=== PATIENT | male | born 1985 | race Caucasian/White ===

== ENCOUNTER 2018-08-03 11:41 | Day surgery (SDC) | payer OTHER ==
[2018-08-02 15:54] VITALS: BMI 27.1
[2018-08-03] MEDS ORDERED: LIDOCAINE HCL/PF 2% SDV 5ML VIAL ONE (14:31)
[2018-08-03] MEDS ORDERED: MIDAZOLAM HCL 2 MG/2 ML SINGLE DOSE VIAL ONE (14:32)
[2018-08-03] MEDS ORDERED: ROCURONIUM BROMIDE 50 MG/5 ML VIAL ONE ×2 (14:32→16:36)
[2018-08-03] MEDS ORDERED: fentaNYL CITRATE 250 MCG/5 ML VIAL ONE (14:32)
[2018-08-03] MEDS ORDERED: PROPOFOL 20 ML ONE ×3 (14:32→17:33)
[2018-08-03] MEDS ORDERED: LIDOCAINE HCL 2% (20ML MULTI-DOSE VIAL) NR ONE (15:00)
[2018-08-03] MEDS ORDERED: BUPIVACAINE HCL/PF 0.5% (5MG/ML) 10 ML VIAL ONE (15:04)
--- NOTE | 2018-08-03 15:12 | HP ---
History & Physical Update - History History: No Change - Physical Physical: No Change - Assessment Assessment: No Change - Plan Plan: No Change (full H&P in chart from 07/19/2018.)
[2018-08-03] MEDS ORDERED: ceFAZolin SODIUM 1 GM VIAL IVPB ONE (15:40)
[2018-08-03] MEDS ORDERED: ceFAZolin SODIUM 1 GM VIAL ONE (15:41)
[2018-08-03] MEDS ORDERED: DEXAMETHASONE SOD PHOSPHATE 4 MG/1 ML VIAL ONE (15:50)
[2018-08-03] MEDS ORDERED: ONDANSETRON 4 MG/2 ML VIAL ONE (15:50)
[2018-08-03] MEDS ORDERED: KETOROLAC TROMETHAMINE 30 MG/1 ML VIAL ONE (16:49)
[2018-08-03] MEDS ORDERED: NALOXONE HCL 0.4 MG/ML VIAL ONE (16:49)
[2018-08-03] MEDS ORDERED: GLYCOPYRROLATE 0.2 MG/1 ML VIAL ONE (17:13)
[2018-08-03] MEDS ORDERED: NEOSTIGMINE METHYLSULFATE 0.5 MG/ML - 10 ML MDV ONE (17:13)
[2018-08-03] MEDS ORDERED: SUCCINYLCHOLINE CHLORIDE 200 MG/10 ML VIAL ONE (17:42)
[2018-08-03] MEDS ORDERED: ACETAMINOPHEN 1000 MG/100 ML VIAL (NON FORMULARY) IVPB ONE (17:57)
[2018-08-03] MEDS ORDERED: ONDANSETRON 4 MG/2 ML VIAL IVPUSH PRN (17:57)
[2018-08-03] MEDS ORDERED: oxyCODONE HCL 5 MG TABLET PO PRN ×2 (17:57)
[2018-08-03] MEDS ORDERED: LACTATED RINGERS SOLUTION 1,000 ML IV SCH (18:00)
--- NOTE | 2018-08-03 18:21 | OP ---
Operative Note - Note: Operative Date: 08/03/18 Pre-Operative Diagnosis: cholelithesis Operation: laparoscopic cholecystecotmy with intra-operative cholangiogram Surgeon: Randal Stovall Telemetry Nurse: Bernice Lucia Anesthesia: General Specimens Removed: gallbladder Estimated Blood Loss (mls): 50 Fluid Volume Replaced (mls): 1,600 Operative Report Dictated: Yes
--- NOTE | 2018-08-03 18:22 | SURG ---
Surgery Instructor [employer] Note Instructor [employer]: Bernice Lucia PA-C Date of Service: 08/03/18 Diagnosis: cholelithesis Procedure: laparscopic cholecystectomy, itra-operative cholangiogram, repair of umbilical hernia I was present for the entirety of the operative procedure. For further detail, please refer to operative report. Visit type - Case Type Case Type: Scheduled - Emergency Emergency Visit: No - New patient This patient is new to me today: Yes Date on this admission: 08/03/18
[2018-08-03 20:44] VITALS: BP 139/66; PULSE 84; TEMP 98.6
--- NOTE | 2018-08-04 14:53 | OP ---
DATE OF OPERATION: 08/03/2018 SURGICAL ATTENDING: Scooby Sabillon MD ADJUNCT FACULTY MATHEMATICS DEPARTMENT: SANTIAGO Hong PREOPERATIVE DIAGNOSES: 1. Gallstones. 2. Umbilical hernia. POSTOPERATIVE DIAGNOSES: 1. Gallstones. 2. Umbilical hernia. ANESTHESIA: General endotracheal. PROCEDURE: 1. Laparoscopic cholecystectomy with intraoperative cholangiogram. 2. Umbilical hernia repair. DESCRIPTION OF PROCEDURE: The patient was taken into the operating room, placed in a supine position, endotracheally intubated, prepped and draped in the usual sterile fashion. A supraumbilical curvilinear incision was made and carried down to subcutaneous tissues. A piece of herniated fat was identified, dissected free from surrounding tissues, and reduced into the peritoneal cavity. The peritoneal lining was identified and palpated and isolated. A Daniela trocar was then placed through this umbilical hernia defect and the abdomen insufflated to 15 mmHg of CO2. Laparoscopy identified no injury and the gallbladder was identified. No other abnormality was seen. A midepigastric and 2 right lateral 5-mm ports were placed under direct vision. The gallbladder was then grasped and retracted superiorly, anteriorly, and laterally. The cystic artery was identified, doubly-clipped, and cut. The cystic duct was identified, dissected out, and a ductotomy was made. A cholangiogram catheter was placed into the duct, balloon inflated, and dye was injected. This showed excellent filling of the cystic duct, the common bile duct, and the common hepatic duct and right and left intrahepatic ducts. It also showed good filling into the small bowel with no defects. The cystic duct was then doubly-clipped and cut. The gallbladder was then retracted off of the liver bed and dissected with electrocautery. It was then placed into an EndoCatch bag and removed. The abdomen was then irrigated and suctioned. No leakage of bile and no bleeding were seen. The umbilical defect was enlarged slightly in order to remove the gallbladder in the EndoCatch bag. At this point, the umbilical defect was then repaired using interrupted 0 Vicryl sutures. All skin incisions were closed with Monocryl and Dermabond was placed. The patient was then awakened, extubated, and taken to recovery in stable condition. Dr. Sabillon, the attending surgeon, was present throughout the entire procedure. SCOOBY SABILLON M.D. [id number]
--- NOTE | 2018-08-09 14:14 | PATH ---
Surgical Pathology Report Patient Name: YAKELIN SIMMONS Med. Rec. #: [id number] /Age/Gender: 1985 (Age: 32) / M Account: [id number] Location: [facility] SURGICAL Taken: 08/03/2018 Received: 08/06/2018 Reported: 08/09/2018 Physicians: Randal Stovall M.D. Specimen(s) Received GALLBLADDER Clinical History Cholelithiasis Final Diagnosis GALLBLADDER, CHOLECYSTECTOMY: CHRONIC CHOLECYSTITIS AND CHOLELITHIASIS. Electronically Signed Lupe uRbin M.D. Gross Description Received in formalin, labeled "gallbladder," is a 9.0 x 2.5 x 2.2 cm. gallbladder with a 0.2 cm. in length portion of cystic duct attached. The outer surface varies from smooth to shaggy. The lumen contains with bile and one stone measuring 3.2 cm in greatest dimension. The mucosa is focally superficial eroded. The wall of the gallbladder measures 0.2cm. in thickness. Electric Transfer Operator sections are submitted in one cassette. FRANCESCA/08/06/2018 julia/08/06/2018
== END 2018-08-03 21:45 | disposition home or self-care (01) ==
LOC: JASU-SURG 11:41 → J6S 19:30 → JASU-SURG 21:45
PROVIDERS: ATTEND Surgery
PROC: BF03YZZ Plain Radiography of Gallbladder and Bile Ducts using Other Contrast (ICD-10-PCS; 2018-08-03)
PROC: 0WQF0ZZ Repair Abdominal Wall, Open Approach (ICD-10-PCS; principal; 2018-08-03 13:00)
PROC: 0FT44ZZ Resection of Gallbladder, Percutaneous Endoscopic Approach (ICD-10-PCS; 2018-08-03 13:00)
DX: K80.20 Calculus of gallbladder without cholecystitis without obstruction (principal); K42.9 Umbilical hernia without obstruction or gangrene
CPT/HCPCS: 76000-TC-FY; 88304-TC; 94760; J0131